=== PATIENT | male | born 1950 | race Hispanic/Latino ===

== ENCOUNTER 2017-11-26 12:22 | Emergency (ER) | payer MEDICARE ==
--- NOTE | 2017-11-26 13:14 | RAD ---
CHEST 2 VIEWS: Date: 11/26/17 HISTORY: Cough. FINDINGS: Cardiac silhouette and pulmonary vasculature are unremarkable. Mediastinum is midline. No confluent a ir space consolidation, pneumothorax, or pleural fluid. IMPRESSION: No active cardiopulmonary abnormalities are demonstrated. POS: [facility]
== END 2017-11-26 14:02 | disposition home or self-care (01) ==
LOC: ERS 12:22
DX: B34.9 Viral infection, unspecified (principal)
CPT/HCPCS: 71046

== ENCOUNTER 2018-05-09 09:07 | Emergency (ER) | payer MEDICARE | END 2018-05-09 09:49 | disposition home or self-care (01) | LOC: ERS 09:07 | DX: J32.9 Chronic sinusitis, unspecified (principal); B97.89 Other viral agents as the cause of diseases classified elsewhere; J06.9 Acute upper respiratory infection, unspecified; Z79.82 Long term (current) use of aspirin | CPT/HCPCS: 99283 ==

== ENCOUNTER 2018-05-15 12:20 | Emergency (ER) | payer MEDICARE | END 2018-05-15 12:34 | disposition home or self-care (01) | LOC: ERS 12:20 | DX: J01.90 Acute sinusitis, unspecified (principal); H61.21 Impacted cerumen, right ear; Z79.82 Long term (current) use of aspirin | CPT/HCPCS: 99283 ==